=== PATIENT | male | born 1975 | race Caucasian/White ===

== ENCOUNTER 2024-01-16 16:37 | Emergency (ER) | payer BC, OTHER ==
[2024-01-16] MEDS ORDERED: TDAP (DIPHTH,PERTUSS(ACELL),TET VAC) 0.5 ML VIAL IMVAC ONE (17:23)
[2024-01-16] MEDS ORDERED: HYDROCODONE/APAP 7.5/325 MG TAB ONE (17:24)
--- NOTE | 2024-01-16 17:27 | EDPHYS ---
Physician Documentation [facility] Name: uSnny Figueroa Age: 48 yrs Sex: Male : 1975 Arrival Date: 01/16/2024 Time: 16:37 Bed IW7 Private MD: ED Physician Mariah Dao HPI: 01/15 17:24 This 48 yrs old Male presents to ER via Ambulatory with complaints of Laceration - To kb finger. 17:24 Pt is a 48 year old male who presents for avulsion laceration of left middle finger kb that occurred just scow captain. States he was chopping celery and accidentally cut finger. Historical: - Allergies: 17:20 No Known Allergies; aa5 - PMHx: 17:20 None; aa5 - PSHx: 17:20 Appendectomy; dental; aa5 - Immunization history:: Last tetanus immunization: unknown. - Infectious Disease History:: Denies. - Social history:: Smoking status: Patient denies any tobacco usage or history of. ROS: 17:24 Constitutional: As per HPI kb Exam: 17:24 Constitutional: This is a well developed, well nourished patient who is awake, alert, kb and in no acute distress. Head/Face: Normocephalic, atraumatic. ENT: Moist Mucous membranes Cardiovascular: Regular rate Respiratory: Respirations even and unlabored. No increased work of breathing. Talking in full sentences MS/ Extremity: Pulses equal, no cyanosis. Neurovascular intact. Full, normal range of motion. Neuro: Awake and alert, GCS 15, oriented to person, place, time, and situation. Moves all extremities. Normal gait. 17:24 Skin: injury, avulsion(s), a small of the palmar aspect of distal phalanx of left middle finger, Vital Signs: 17:19 BP 138 / 88; Pulse 91; Resp 18 S; Temp 97.6(TE); Pulse Ox 96% on R/A; Weight 124.28 kg aa5 (R); Height 6 ft. 3 in. (R); 17:19 Body Mass Index 34.25 (124.28 kg, 190.5 cm) aa5 MDM: 17:18 Patient medically screened. kb 17:24 Differential diagnosis: contusion, laceration, avulsion. Data reviewed: vital signs, kb nurses notes. Historians other than the Patient: Spouse/Significant Other: . Counseling: I had a detailed discussion with the patient and/or guardian regarding the historical points, exam findings, and any diagnostic results supporting the discharge/admit diagnosis, the need for outpatient follow up, a family practitioner, to return to the emergency department if symptoms worsen or persist or if there are any questions or concerns that arise at home. ED course: Surgicel applied to avulsion then pressure dressing. Pt educated on wound care and need for follow up. 01/15 17:22 Order name: Wound dressing: surgicel; Complete Time: : aa5 Administered Medications: : Drug: Boostrix Tdap IM 0.5 ml IM once; as a single dose Route: IM; Site: right deltoid; aa5 17:30 Follow up: Response: No adverse reaction; Medication administered at discharge. aa5 17: Drug: Hydrocodone-Acetaminophen PO (7.5 mg-325 mg) 1 tabs PO once Route: PO; aa5 17:30 Follow up: Response: No adverse reaction; Medication administered at discharge. aa5 Disposition Summary: 01/16/24 17:26 Discharge Ordered Notes: Location: Home kb Condition: Stable kb Diagnosis - Laceration without foreign body of left middle finger without damage to nail - kb avulsion laceration Followup: kb - With: Private Physician - When: 2 - 3 days - Reason: Recheck today's complaints, Continuance of care, Re-evaluation by your physician Followup: kb - With: Emergency Department - When: As needed - Reason: Worsening of condition Discharge Instructions: - Discharge Summary Sheet kb - Deep Skin Avulsion kb - Laceration Care, Adult, [id number] kb Forms: - Medication Reconciliation Form kb - Antibiotic Education kb - Prescription Opioid Use kb - Patient Portal Instructions kb - Leadership Thank You Letter kb Signatures: Chela Eugene FNP-C FNP-Danielle Kerr, RN RN aa5
--- NOTE | 2024-01-16 17:27 | ER ---
Nurse's Notes [facility] Name: Sunny Figueroa Age: 48 yrs Sex: Male : 1975 Arrival Date: 01/16/2024 Time: 16:37 Bed IW7 Private MD: Diagnosis: Laceration without foreign body of left middle finger without damage to nail-avulsion laceration Presentation: 01/15 17:19 Chief complaint: Patient states: cut left middle finger cutting celery. Coronavirus aa5 screen: At this time, the client does not indicate any symptoms associated with coronavirus-19. Ebola Screen: Patient denies travel to an Ebola-affected area in the 21 days before illness onset. Complicating Factors: There are no complicating factors for this patient. Initial Sepsis Screen: Does the patient meet any 2 criteria? No. Patient's initial sepsis screen is negative. Does the patient have a suspected source of infection? No. Patient's initial sepsis screen is negative. Risk Assessment: Do you want to hurt yourself or someone else? Patient reports no desire to harm self or others. Onset of symptoms was January 16, 2024. 17:19 Acuity: JANE 4 aa5 17:19 Method Of Arrival: Ambulatory aa5 Historical: - Allergies: 17:20 No Known Allergies; aa5 - PMHx: 17:20 None; aa5 - PSHx: 17:20 Appendectomy; dental; aa5 - Immunization history:: Last tetanus immunization: unknown. - Infectious Disease History:: Denies. - Social history:: Smoking status: Patient denies any tobacco usage or history of. Screenin:20 [facility] ED Fall Risk Assessment (Adult) History of falling in the last 3 months, aa5 including since admission No falls in past 3 months (0 pts) Confusion or Disorientation No (0 pts) Intoxicated or Sedated No (0 pts) Impaired Gait No (0 pts) Mobility Assist Device Used No (0 pt) Altered Elimination No (0 pt) Score/Fall Risk Level 0 - 2 = Low Risk Oriented to surroundings, Maintained a safe environment, Educated pt \T\ family on fall prevention, incl call for assistance when getting out of bed. Abuse screen: Denies threats or abuse. Nutritional screening: No deficits noted. Tuberculosis screening: No symptoms or risk factors identified. Assessment: 17:20 General: Appears uncomfortable, Behavior is calm, cooperative. Pain: Complains of pain aa5 in distal phalanx of left middle finger. Neuro: Level of Consciousness is awake, alert, obeys commands, Oriented to person, place, time, situation. Cardiovascular: Patient's skin is warm and dry. Respiratory: Airway is patent Respiratory effort is even, unlabored, Respiratory pattern is regular, symmetrical. GI: No signs and/or symptoms were reported involving the gastrointestinal system. : No signs and/or symptoms were reported regarding the genitourinary system. EENT: No signs and/or symptoms were reported regarding the EENT system. Derm: Skin is pink, warm \T\ dry. Musculoskeletal: Range of motion: intact in all extremities. Injury Description: avulsion noted to distal phalanx of left middle finger, moderate amount of bleeding noted. 17:22 Reassessment: Wound cleaned with saline by AIRCRAFT DISPATCHER, surgicel applied by AIRCRAFT DISPATCHER and dressed with aa5 gauze and Coban. . 17:30 Reassessment: Patient is alert, oriented x 3, equal unlabored respirations, skin aa5 warm/dry/pink. Vital Signs: 17:19 BP 138 / 88; Pulse 91; Resp 18 S; Temp 97.6(TE); Pulse Ox 96% on R/A; Weight 124.28 kg aa5 (R); Height 6 ft. 3 in. (R); 17:19 Body Mass Index 34.25 (124.28 kg, 190.5 cm) aa5 ED Course: 16:39 Patient arrived in ED. ra3 17:18 [facility]C [facility]. kb 17:18 Mariah Dao MD is Attending Physician. kb 17:18 Arm band placed on. aa5 17:18 Patient has correct armband on for positive identification. Adult w/ patient. aa5 17:20 Triage completed. aa5 17:26 Danielle Tim, RN is Primary Nurse. aa5 17:30 No provider procedures requiring assistance completed. Patient did not have IV access aa5 during this emergency room visit. Administered Medications: 17:26 Drug: Boostrix Tdap IM 0.5 ml IM once; as a single dose Route: IM; Site: right deltoid; aa5 17:30 Follow up: Response: No adverse reaction; Medication administered at discharge. aa5 17:26 Drug: Hydrocodone-Acetaminophen PO (7.5 mg-325 mg) 1 tabs PO once Route: PO; aa5 17:30 Follow up: Response: No adverse reaction; Medication administered at discharge. aa5 Medication: 17:30 VIS not applicable for this client. aa5 Outcome: 17:26 Discharge ordered by MD. coppola 17:30 Discharged to home ambulatory, with significant other, aa5 17:30 Condition: improved 17:30 Discharge instructions given to patient, significant other, Instructed on discharge instructions, follow up and referral plans. wound care, Demonstrated understanding of instructions, follow-up care, wound care, 17:31 Patient left the ED. aa5 Signatures: Chela Eugene, ANGEL HUBBARD-Danielle Kerr, RN RN aa5 Amelie Ibrahim ra3
[2024-01-16 17:34] VITALS: BP 138/88; TEMP 97.6; O2SAT 96
== END 2024-01-16 17:31 | disposition home or self-care (01) ==
LOC: ER 16:37
DX: S61.213A Laceration without foreign body of left middle finger without damage to nail, initial encounter (principal)
CPT/HCPCS: 96372; 99284